=== PATIENT | female | born 1950 | race Caucasian/White ===

== ENCOUNTER → 2024-04-25 | Outpatient (CLI) | payer MEDICARE | END | disposition home or self-care (01) | LOC: RESCLI 14:39 | PROVIDERS: ATTEND Student in an Organized Health Care Education/Training Program | DX: N32.81 Overactive bladder (principal); I10 Essential (primary) hypertension; F41.9 Anxiety disorder, unspecified; G47.30 Sleep apnea, unspecified; Z88.0 Allergy status to penicillin; Z79.899 Other long term (current) drug therapy; Z90.710 Acquired absence of both cervix and uterus ==